=== PATIENT | female | born 1965 | race Caucasian/White ===

== ENCOUNTER 2021-05-30 10:13 | Day surgery (SDC) | payer MEDICARE ==
--- NOTE | 2021-05-30 09:18 | HP ---
DATE OF SURGERY: 05/30/2021 HISTORY OF PRESENT ILLNESS: The patient is a 56 year-old with history of chronic obstructive pulmonary disease, has some chronic constipation. She had a stricture. She cannot tolerate a full prep. PAST MEDICAL HISTORY: Chronic obstructive pulmonary disease, gastroesophageal reflux disease. PAST SURGICAL HISTORY: She had multiple back surgeries, had section x2, hysterectomy in the past. Orthopedic surgery. Sigmoid resection, end colostomy with rectosigmoid stump. MEDICATIONS: Aspirin, gabapentin, cyclobenzaprine, Symbicort, albuterol, omeprazole. ALLERGIES: CODEINE. FAMILY HISTORY: Cancer. Hypertension. SOCIAL HISTORY: One pack per day smoker, denies alcohol abuse. REVIEW OF SYSTEMS: Fourteen systems reviewed pertinent for the multiple medical problems, chronic constipation in the past. Otherwise no chest pain or palpitations. Other systems negative or noncontributory as above and per preadmission questionnaire. PHYSICAL EXAMINATION: GENERAL: No acute distress. HEENT: Sclerae nonicteric. NECK: No JVD. CHEST: Breath sounds symmetrical. CVS: Regular rate and rhythm. ABDOMEN: Soft. Ostomy fine. EXTREMITIES: No cyanosis. NEURO: Alert, moving extremities symmetrically. RECTAL: Deferred timed to endoscopy exam. PSYCH: Appropriate mood and affect. IMPRESSION: Prior history of sigmoid narrowing and obstruction required resection and colostomy closer up to sigmoid stump, now need to follow up colonoscopy and desires to see if she is a possible candidate for considering ostomy takedown. General risk of anesthesia or sedation, risk of bowel prep, risk of bowel injury or perforation possibly requiring open procedure, risk of missed or nondiagnosis or incomplete exam possibly requiring barium enema, other studies or procedures, general risk of anesthesia or sedation but not limited to, consent obtained. Will proceed with outpatient colonoscopy.
[2021-05-30] MEDS ORDERED: Lactated Ringers 1,000 ML IV SCH (10:30)
[2021-05-30] MEDS ORDERED: Lactated Ringers 1,000 ML IV ONE (10:35)
[2021-05-30] MEDS ORDERED: DIPRIVAN 200 MG/20 ML IV ONE ×2 (13:09→13:27)
[2021-05-30 14:24] VITALS: BP 131/84; PULSE 91; O2SAT 92
--- NOTE | 2021-05-31 08:46 | OP ---
SURGERY DATE/TIME: 05/30/2021 1310 PREOPERATIVE DIAGNOSIS: Prior history of obstructing sigmoid narrowing requiring resection and ostomy, need for follow up colonoscopy. POSTOPERATIVE DIAGNOSES: 1) Diverticulosis. 2) Question submucosal lipomatous density ascending colon. 3) Transverse colon polyp. 4) Fair bowel prep. 5) ASA Class II. PROCEDURES: 1) Colonoscopy through ostomy to cecum with cold biopsy mucosa, question submucosal lipomatous density ascending colon. 2) Hot snare polypectomy transverse colon polyp. 3) Flexible proctosigmoidoscopy to rectosigmoid stump. SURGEON: Dr. Matias Sierra. ANESTHESIA: MAC. ESTIMATED BLOOD LOSS: Minimal. INDICATIONS: As noted above. Risks and benefits explained in detail but not limited to and consent obtained. DESCRIPTION OF PROCEDURE AND FINDINGS: The patient is taken to the endoscopy room. MAC anesthesia introduced. After official time out and no disagreement with planned procedure, digital rectal exam did not reveal any rectal masses. Video colonoscope inserted and passed up through the rectum up to the sigmoid, rectosigmoid area stump about 20 cm or so. There was a lot of mucous slightly limiting the exam. There is no evidence of any large polyps, masses or obstructing lesions on withdrawal of the scope. Attention is then turned to colonoscopy through the left lower quadrant stoma. Carefully passed up through the long colon. With external pressure the scope was able to be passed down the ascending colon to cecum. Appendiceal orifice and valve well visualized and photo documented. Prep overall was fair with some liquidy semisolid stool slightly limiting the exam for small lesions. The scope is slowly and carefully withdrawn. In the ascending colon the mucosa appeared to be normal overlying what appeared to be possibly a submucosal lipomatous density. Cold biopsy is taken of the mucosa overlying this. The scope is carefully pulled back. In the proximal ascending colon there appeared to be a pedunculated polyp which was removed this looked to be adenomatous. It was removed with hot snare polypectomy. It came out in two pieces but appeared to be removed completely. Good hemostasis noted. Otherwise she had a few diverticula. There were no signs of any large polyps, masses or obstructing lesions. The scope was withdrawn. The patient tolerated the procedure well.
== END 2021-05-30 14:36 | disposition home or self-care (01) ==
LOC: EDBD → SDC 10:13 → MERGE 12:45 → SDC 14:36
PROVIDERS: ATTEND Surgery
DX: Z09 Encounter for follow-up examination after completed treatment for conditions other than malignant neoplasm (principal); D12.3 Benign neoplasm of transverse colon; Z90.49 Acquired absence of other specified parts of digestive tract; K57.30 Diverticulosis of large intestine without perforation or abscess without bleeding; D17.5 Benign lipomatous neoplasm of intra-abdominal organs; Z79.899 Other long term (current) drug therapy; K59.09 Other constipation
CPT/HCPCS: 88305; J2704